=== PATIENT | male | born 1975 | race Caucasian/White ===

== ENCOUNTER 2017-02-26 22:03 | Emergency (ER) | payer MEDICAID ==
[~2017-02-26] VITALS: Ht 165.1 cm; Wt 87.0 kg
[~2017-02-26 22:03] MED LIST: CETI10CA PO; HC30CR25 TOP; PRED20TA PO
[2017-02-26 22:07] VITALS: Ht 165.1 cm; Wt 87.0 kg
[2017-02-27] MEDS ORDERED: KENC1 TOP (00:28)
[2017-02-27] MEDS ORDERED: BEN25 PO (00:28)
[2017-02-27] MEDS ORDERED: PRED20TA PO (00:28)
--- NOTE | 2017-02-27 00:38 | ERD ---
ER Documentation Chief Complaint Date/Time DATE: 02/27/17 TIME: 00:36 Chief Complaint generalize body rash(poison jaimie) x 3 days HPI 41-year-old male states that he was exposed to poison jaimie 3 days ago and complains of a pruritic rash to his left forearm and chest. Patient states that he immediately had itching, it is like a slightly burning sensation as well. He denies any other foreign foods, medications, allergens besides this. No shortness of breath. He has not tried anything for this yet. ROS All systems reviewed and are negative except as per history of present illness. Medications Home Meds Active Scripts Diphenhydramine Hcl* (Benadryl*) 25 Mg Cap, 25 MG PO Q6, #30 CAP Prov:FRANCES GAMBOA PA-C 02/27/17 Triamcinolone Acetonide (Triamcinolone Acetonide) 0.1% - 15 Gm Cream.gm., 1 APPLIC TOP BID, #1 TUB Prov:FRANCES GAMBOA PA-C 02/27/17 Prednisone* (Prednisone*) 20 Mg Tab, 40 MG PO DAILY for 5 Days, TAB Prov:FRANCES GAMBOA PA-C 02/27/17 Hydrocortisone* Topical (Hydrocortisone* Topical) 2.5%-28.3 Gm Cream..g., 1 APPLIC TOP TID, #1 TUB 30G Prov:KENISHA APPIAH MD 11/11/15 Cetirizine Hcl* (Zyrtec*) 10 Mg Capsule, 10 MG PO DAILY, #14 TAB.CHEW Prov:KENISHA APPIAH MD 11/11/15 Prednisone* (Prednisone*) 20 Mg Tab, 40 MG PO DAILY for 4 Days, TAB Prov:KENISHA APPIAH MD 11/11/15 Allergies Allergies: Coded Allergies: No Known Allergy (Unverified , 02/26/17) PMhx/Soc Medical and Surgical Hx: pt denies Medical Hx, pt denies Surgical Hx History of Surgery: No Anesthesia Reaction: No Hx Neurological Disorder: No Hx Respiratory Disorders: No Hx Cardiac Disorders: No Hx Psychiatric Problems: No Hx Miscellaneous Medical Probl: No Hx Alcohol Use: No Hx Substance Use: No Hx Tobacco Use: No Physical Exam Vitals Vital Signs Date Time Temp Pulse Resp B/P Pulse Ox O2 Delivery O2 Flow Rate FiO2 02/26/17 22:07 98.1 84 20 146/95 97 Physical Exam General: Well-developed, well-nourished. The patient appears in no acute distress. HEENT: Head is normocephalic, atraumatic. No scleral icterus. Neck: Supple. Nontender. Lungs: Clear to auscultation. Normal air movement. Heart: Regular rate and rhythm. S1 and S2 are normal. No murmurs, gallops, or rubs. Abdomen: Nondistended. Extremities: No clubbing or cyanosis. Moving extremities x 4. No weakness. Neurologic: Alert and oriented 3. No focal deficits. Normal speech and gait. Skin: Macular rash is erythematous, and scattered on the left upper extremity as well as the chest. Rashes blanchable, no vesicles. Procedures/MDM 41-year-old male comes in with dermatitis from poison jaimie, there is no evidence of shingles, cellulitis, abscess, Chad Dave, or any life-threatening illness at this time. Patient will be given triamcinolone, Benadryl and prednisone to take at home Departure Diagnosis: Primary Impression: Rash Condition: Good Patient Instructions: Contact Dermatitis, Poison Jaimie Dermatitis Additional Instructions: Llame al doctor MAANA y florinda iris JENNI PARA DENTRO DE 1-2 HEARN.Dgale a la secretaria que nosotros le instruimos hacer esta jenni.Avise o llame si oconnell condicin se empeora antes de la jenni. Regresa aqui si peor o no mejor. FRANCES GAMBOA PA-C February 27, 2017 00:38
[2017-02-27 00:58] VITALS: BP 142/92; PULSE 80; RESP 20; TEMP 98.1
== END 2017-02-27 01:00 | disposition home or self-care (01) ==
LOC: FTE 22:03
DX: R21 Rash and other nonspecific skin eruption (principal)
CPT/HCPCS: 99284